=== PATIENT | male | born 1980 | race Caucasian/White ===

== ENCOUNTER 2017-03-09 10:01 | Day surgery (SDC) | payer OTHER, BC ==
[2017-02-22 13:32] VITALS: BMI 49.0
[2017-02-22 14:46] LABS: BASO % 0.5 %; BASO ABS # 0.04 K/uL (0-0.2); COMPLETE YES; EOS % 1.3 %; HEMATOCRIT 47.3 % (42-52); IG% 0.1 %; LYMPH % 41.1 %; LYMPH ABS # 3.12 K/uL (1.2-3.4); MEAN CELL VOLUME 81.8 fL (80-100); MEAN CORPUSCULAR HEMOGLOBIN 28.5 pg (25-34); MEAN CORPUSCULAR HGB CONC 34.9 g/dl (32-36); MEAN PLATELET VOLUME 9.9 fL (7.4-10.4); MONO % 6.1 %; NEUT % 50.9 %; PLATELET COUNT 266 K/uL (130-400); RED BLOOD COUNT 5.78 M/uL (4.7-6.1); WHITE BLOOD COUNT 7.59 K/uL (4.8-10.8)
[2017-02-22 15:07] LABS: BUN/CREATININE RATIO 8.6 (10-20); CREATININE 1.1 mg/dl (0.60-1.40); POTASSIUM 3.8 mmol/L (3.5-5.1)
[2017-02-23 06:06] LABS: ESTIMATED AVERAGE GLUCOSE 108 mg/dl; HA1C FLAG Normal (Normal)
[~2017-03-09] VITALS: Ht 180.3 cm; Wt 161.6 kg
--- NOTE | 2017-03-09 00:32 | HISTORY & PHYSICAL EXAMINATION ---
DATE OF ADMISSION: 03/09/2017 SUBJECTIVE CHIEF COMPLAINT: Left foot pain. HISTORY OF PRESENT ILLNESS: This is a patient who sustained an injury to his left foot on 07/31/2016 while he was at work. He states he had an injury to the fifth metatarsal and also injuries to the tendons within the foot. He had a procedure to repair the tendons and states he was placed in a cast for approximately 2 weeks and he has been in a walking boot since August. He has recently had a CT scan which showed a nonunion of the fifth metatarsal base fracture. He is currently being set up for surgical management. PAST MEDICAL HISTORY: None. FAMILY HISTORY: Noncontributory. SOCIAL HISTORY: The patient denies alcohol and tobacco use. PAST SURGICAL HISTORY: Left ankle surgery. ALLERGIES: No known drug allergies. CURRENT MEDICATIONS: None. OBJECTIVE PHYSICAL EXAMINATION: GENERAL: The patient is alert and oriented x3. He is in no acute distress. He is a well-dressed, well-nourished 36-year-old male whose affect is appropriate. CARDIOVASCULAR: Heart has a regular rhythm and rate without murmurs. LUNGS: Clear to auscultation bilaterally. Dorsalis pedis, posterior tib pulse +2/4. Cap refill is less than 2 seconds. LYMPHATIC: No evidence of any swollen lymph nodes. MUSCULOSKELETAL: The patient has an antalgic gait favoring the left lower extremity. Upon inspection of left lower extremity, the patient has swelling at the lateral aspect of the foot. With palpation, he has tenderness at the fifth metatarsal base. He has decrease in range of motion and strength secondary to pain with the left foot. SKIN: He has a well-healed surgical incision at the lateral aspect of the left foot. NEUROLOGIC: Sensation normal and intact distally, left lower extremity. X-RAY EXAM: CT of the left foot demonstrates a nonunion fifth metatarsal base. 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 PLAN: Above assessment was discussed with the patient. At this time it was recommended the patient undergo an ORIF of the fifth metatarsal base fracture with autograft and calcaneal autograft harvest. All potential risks, benefits, complications, alternatives and rehab have been discussed with the patient. At this time, he wishes to proceed with the surgery as indicated. He will be scheduled for the surgery on 03/09/2017. TALON
[~2017-03-09 10:01] MED LIST: CEFAZOLIN 3000 MG/65 ML D5W IV SCH; LACTATED RINGER'S 1000ML 1,000 ML IV SCH; ROPIVACAINE 0.5% 5 MG/ML 30 ML VIAL ONE
[2017-03-09] MEDS ORDERED: PROPOFOL IV EMULSION 10 MG/ML 20 ML VIAL IV ONE (10:14)
[2017-03-09] MEDS ORDERED: LIDOCAINE HCL 2% 2 ML VIAL (20MG/ML) ONE (10:14)
[2017-03-09] MEDS ORDERED: FENTANYL CITRATE INJ 50 MCG/1 ML 2 ML VIAL ONE ×2 (10:15→12:14)
[2017-03-09] MEDS ORDERED: MIDAZOLAM HCL 1 MG/ML 2ML VIAL ONE (10:15)
[2017-03-09 10:20] VITALS: BP 148/94; PULSE 80; TEMP 36.5; O2SAT 96; Ht 180.3 cm; Wt 161.6 kg
--- NOTE | 2017-03-09 10:58 | History & Physical Bridge Note ---
H&P Re-Evaluation Bridge Note: I have examined the patient, reviewed the History & Physical and in the interval since the performance of the History & Physical I have noted the following changes of clinical significance: No changes noted
[2017-03-09] MEDS ORDERED: ASPI325T45 PO ×2 (11:03→13:06)
[2017-03-09] MEDS ORDERED: ATROPINE SULFATE 0.1 MG/ML 5ML SYR IV PRN (11:30)
[2017-03-09] MEDS ORDERED: EpHEDrine SULFATE INJ 50 MG/ML AMP IV PRN (11:30)
[2017-03-09] MEDS ORDERED: FENTANYL CITRATE INJ 50 MCG/1 ML 2 ML VIAL IV PRN (11:30)
[2017-03-09] MEDS ORDERED: DEXAMETHASONE SOD INJ 4 MG/ML VIAL ONE ×2 (12:20→13:45)
[2017-03-09] MEDS ORDERED: ONDANSETRON INJ 2 MG/ML 2 ML VIAL ONE ×2 (12:20→13:45)
[2017-03-09] MEDS ORDERED: OXYC-57 PO (13:06)
--- NOTE | 2017-03-09 13:13 | Discharge Instructions ---
Discharge Instructions Date of Service Mar 09, 2017. Visit Reason for Visit: Left Foot Displaced 5TH Metatarsal Fracture Discharge Discharge Diagnosis / Problem: Left Nonunion Displaced 5th Metatarsal Fx Discharge Goals Goal(s): Decrease discomfort, Improve function Activity Recommendations Activity Limitations: per Instructions/Follow-up section Weightbearing Status: Left non-weightbearing Anesthesia . Post Anesthesia Instructions: If you have had General Anesthesia or IV Sedation: * Do not drive today. * Resume driving when surgeon permits. * Do not make important decisions or sign legal documents today. * Call surgeon for: 1. Temperature elevations greater than 101 degrees F. 2. Uncontrollable pain. 3. Excessive bleeding. 4. Persistent nausea and vomiting. 5. Medication intolerance (nausea, vomiting or rash). * For nausea and vomiting use only clear liquids such as: tea, soda, bouillon until nausea subsides, then gradually increase diet as tolerated. * If you have any concerns or questions, call your surgeon's office. If physician is unavailable and it is an emergency, call 911 or go to the nearest emergency room. . Instructions / Follow-Up Instructions / Follow-Up ACTIVITY RECOMMENDATIONS: Limitations: Nonweightbearing Left foot with crutches SPECIAL CARE INSTRUCTIONS: * Some drainage onto the dressing is normal and is no cause for alarm. * Some swelling is natural especially after being up. * When resting, keep your foot elevated above the level of your heart. * Call [facility] if you notice: -Increased drainage -Fever over 101 degrees F -Severe constant pain BANDAGE: * Leave bandage/cast in place unless otherwise directed. * Keep bandage/cast dry at all times. PIN CARE: * Leave pins alone. * If pins come loose or fall out, notify physician. FOLLOW UP VISIT WITH DR. MCCARTY If appointment is not already scheduled: Please call [facility] after you get home today to schedule a follow-up appointment for [address] Mccarty at . Diet Recommendations Recommended Home Diet: resume previous diet Pending Studies Studies pending at discharge: no Medical Emergencies . Who to Call and When: Medical Emergencies: If at any time you feel your situation is an emergency, please call 911 immediately. . Non-Emergent Contact Non-Emergency issues call your: Surgeon Call Non-Emergent contact if: temperature is above 101.5, your pain is not controlled, your pain is worsening, wound has increased drainage, wound has increased redness . . "Provider Documentation" section prepared by Kevin Riggins. . [place] Drug Monitoring Program Search Results: patient reviewed within database, no issues identified
[2017-03-09] MEDS ORDERED: NEOSTIGMINE METHYLSULFATE 5 MG/5 ML SYR ONE (13:45)
[2017-03-09] MEDS ORDERED: GLYCOPYRROLATE INJ 0.2 MG/ML VIAL ONE (13:45)
--- NOTE | 2017-03-09 13:55 | [facility] Post Operative Brief Note ---
Immediate Operative Summary Operative Date Mar 09, 2017. Pre-Operative Diagnosis Left Foot Displaced 5th Metatarsal Fracture with Nonunion Post-Operative Diagnosis Left Foot Displaced 5th Metatarsal Fracture with Nonunion Procedure(s) Performed Left Foot Open Reduction Internal Fixation Non Union 5th Metatarsal Fracture with Autograft; Calcaneal Autograft [place] Surgeon Dr. Hernandez [employer] Surgeon(s) Dominic Mack PA-C Estimated Blood Loss 3 mL Findings See Dict Specimens None per Surgeon Drains None Anesthesia GLMA w/ popliteal block Complication(s) None Disposition Recovery Room / PACU
[2017-03-09] MEDS ORDERED: OXYCODONE/ACETAMINOPHEN 5-325 TAB PO PRN (14:00)
--- NOTE | 2017-03-09 14:16 | Anesthesiology Progress Note ---
Anesthesia Post Op Note Date & Time Mar 09, 2017 at 14:16 Vital Signs Pain Intensity: 0 Vital Signs Past 12 Hours Date Time Temp Pulse Resp B/P (MAP) Pulse Ox O2 Delivery O2 Flow Rate FiO2 03/09/17 14:05 68 16 137/82 96 Nasal Cannula 2 03/09/17 13:55 65 16 131/85 94 Nasal Cannula 2 03/09/17 13:46 36.4 70 16 152/79 97 Mask 10 03/09/17 10:20 36.5 80 20 148/94 (112) 96 Room Air Notes Mental Status: alert / awake / arousable, participated in evaluation Pt Amnestic to Procedure: Yes Nausea / Vomiting: adequately controlled Pain: adequately controlled Airway Patency, RR, SpO2: stable & adequate BP & HR: stable & adequate Hydration State: stable & adequate Anesthetic Complications: no major complications apparent
--- NOTE | 2017-03-09 14:27 | DIAGNOSTIC IMAGING REPORT ---
LEFT FOOT MIN 3 VIEWS ROUTINE CLINICAL HISTORY: post op COMPARISON: None. DISCUSSION: There is an internally fixated fracture of the fifth metatarsal. A single longitudinally oriented screw is identified. Fracture line appears be near the junction of proximal and middle one third. There is 2 mm of lateral displacement of the distal fragment. The fine bony details obscured by overlying plaster cast. IMPRESSION: Internally fixated fifth metatarsal fracture Electronically signed by: Bert Meyer M.D. 03/09/2017 2:26 PM Dictated Date/Time: 03/09/2017 2:24 PM
[2017-03-09 14:30] VITALS: BP 135/95; PULSE 68; TEMP 36.8; O2SAT 94
[2017-03-09 15:05] VITALS: BP 125/67; PULSE 65; O2SAT 95
[2017-03-09 15:30] VITALS: BP 129/69; PULSE 62; TEMP 36.7; O2SAT 96
--- NOTE | 2017-03-09 15:33 | DIAGNOSTIC IMAGING REPORT ---
INTRAOPERATIVE LEFT FOOT 2 VIEWS CLINICAL HISTORY: LT ORIF 5TH PROXIMAL METATARSAL COMPARISON STUDY: No previous studies for comparison. FINDINGS: 63 seconds of fluoroscopic time was utilized. 2 intraoperative fluoroscopic spot films were acquired. There is internal fixation of a fifth metatarsal fracture with a single longitudinally oriented screw. IMPRESSION: Internally fixated fifth metatarsal fracture. Electronically signed by: Bert Meyer M.D. 03/09/2017 3:32 PM Dictated Date/Time: 03/09/2017 3:31 PM
--- NOTE | 2017-03-09 20:45 | OPERATIVE REPORT ---
DATE OF OPERATION: 03/09/2017 PREOPERATIVE DIAGNOSIS: Left fifth metatarsal nonunion with displacement. POSTOPERATIVE DIAGNOSIS: Same. PROCEDURES: 1. Left foot open reduction and internal fixation nonunion fifth metatarsal with autografting. 2. Autograft harvest from the left calcaneus. SURGEON: Dr. Hernandez. PSYCH TECH: Dominic Mack PA-C who was present for patient positioning, sterile prep and drape, management of retractors and instruments. He was present through the critical portions of the case including wound closure, application of sterile dressing and transport of the patient to recovery. ANESTHESIA: General LMA with popliteal block. SPECIMENS: None. DRAINS: None. COMPLICATIONS: None. BLOOD LOSS: 3 mL. PERTINENT HISTORY: This is a 36-year-old gentleman who had sustained a fifth metatarsal fracture on 07/31/2016 while he was at work. He had a procedure to repair the tendons in his ankle and foot and he was placed in a cast for 2 weeks. He has been in a walking boot since August 2016. He had multiple x-rays and recently had a CT scan which confirmed a displaced nonunion of the left fifth metatarsal. He continued to have pain and no evidence of bony union over a 7 month period and the patient was then scheduled for surgery as indicated. All potential risks, benefits, complications, alternatives, rehab, potential for incomplete relief of symptoms, need for further surgery, DVT, PE, , persistent pain, swelling, scarring, weakness, neurovascular injury, wound complications, hardware fracture, nonunion, malunion were discussed with the patient. The patient then decided to proceed with the procedure as indicated. DESCRIPTION OF PROCEDURE: After the popliteal block was administered in the preop holding area, the patient was then taken to the operative suite, placed supine on the operating room table. After review of the consent and identification of proper operative site, the patient was anesthetized, LMA was placed. Tourniquet was placed high on the left thigh over cast padding. Next, left lower extremity was then sterilely prepped and draped in usual fashion, elevated, and exsanguinated with an Esmarch bandage, tourniquet inflated to 350 mmHg. Next, a 15-blade scalpel was used to make an incision at the base of the left fifth metatarsal. This linear incision was then deepened through subcutaneous tissue. Meticulous hemostasis was achieved with electrocautery. Full thickness skin flaps were developed. The sensory cutaneous nerves identified and then retracted and protected. Next, the peroneal tendon was then identified, carefully elevated superiorly and retracted. Next, incision was made in the periosteum overlying the base of the fifth metatarsal for preparation of implantation of a fixation screw. Next, a 15-blade scalpel was then used to make an incision over the nonunion site at the proximal one-third of the left fifth metatarsal. This incision was then deepened through subcutaneous tissue. Meticulous hemostasis was achieved with cautery. Full thickness skin flaps were developed, sensory cutaneous nerves were retracted and protected when possible. Next, periosteum was then incised in line with skin incision revealing the nonunion which was then confirmed with C-arm fluoroscopy. Next, the nonunion site was then carefully debrided using a curette and rongeur until bleeding bone was encountered. There was a diastasis was noted of several millimeters. Next, this was irrigated with sterile normal saline until clear. Next, a 15-blade scalpel was then used to make an incision over the posterolateral aspect of the calcaneal tuberosity. This oblique incision was then deepened through subcutaneous tissue and meticulous hemostasis was achieved with electrocautery. The periosteum was then incised and a 3-sided trapezoid osteotome and mallet was then used to elevate a window of bone which was then elevated using the periosteum as a hinge. Next, curette was then used to harvest calcaneal autograft cancellous bone which was then placed into a small plastic container. After appropriate amount of cancellous autograft was harvested, this incision was then carefully irrigated with sterile normal saline until clear. A 2-0 Vicryl was then used to suture the periosteum over the trap door hinge to close the hinge of bone in an anatomic position. Next, the 3-0 Vicryl was then used to close the dermis with buried interrupted sutures x3. Next, 4-0 nylon was then used to close the skin. The cancellous autograft harvested was then impacted into the nonunion site with a pair of [place] forceps and a [place] elevator. After this was completed, a 3.2 mm drill bit was then drilled into the medullary canal of the fifth metatarsal from proximal to distal under live fluoroscopic assistance. Next, a 4.5 mm drill bit was then used to overdrill the near cortex and the proximal portion of the fracture up to the site of the fracture. Next countersinking was then performed proximally. Next, after appropriate length screw was determined, a 66 mm fully threaded solid 4.5 mm large fragment screw was placed into the intramedullary canal of the left fifth metatarsal and used to compress the fracture into near anatomic position. Final radiographs were obtained in AP and lateral projections, further bone grafting was then performed at the nonunion site and then final irrigation was performed with sterile normal saline and the remaining incisions. Next, periosteum was closed over the fracture site with 2-0 Vicryl and then the incision was then closed with 3-0 Vicryl at the dermis and then skin was closed using 4-0 nylon. This was then followed by application of a sterile compressive dressing and a bulky Manuel Vega plaster splint overwrapped with an Michael wrap, foot held in neutral dorsiflexion. The tourniquet was then released. The patient was awakened and taken to recovery in stable condition. I attest to the content of the Intraoperative Record and any orders documented therein. Any exception s are noted below.
== END 2017-03-09 15:50 | disposition home or self-care (01) ==
LOC: C.ACU 10:01
PROVIDERS: ATTEND Orthopaedic Surgery Sports Medicine
DX: S92.352K Displaced fracture of fifth metatarsal bone, left foot, subsequent encounter for fracture with nonunion (principal); X58.XXXA Exposure to other specified factors, initial encounter